=== PATIENT | female | born 1940 | race Hispanic/Latino ===

== ENCOUNTER 2020-07-29 10:14 | Outpatient (CLI) | payer MEDICARE, MEDICAID, SELFPAY | END 2020-07-29 10:15 | disposition home or self-care (01) | PROVIDERS: PCP Family Medicine; Visit Provider Family Medicine | DX: H90.3 Sensorineural hearing loss, bilateral (principal) | CPT/HCPCS: 92553; 92555; 92567 ==

== ENCOUNTER 2020-08-08 08:21 | Outpatient (RCR) | payer MEDICARE, MEDICAID, SELFPAY | END 2020-11-06 23:59 | disposition home or self-care (01) | LOC: ANHBWCAUD 08:21 | PROVIDERS: PCP Family Medicine; Visit Provider Family Medicine | DX: Z46.1 Encounter for fitting and adjustment of hearing aid (principal) | CPT/HCPCS: V5160; V5261 ==